=== PATIENT | female | born 1975 | race African-American/Black ===

== ENCOUNTER 2020-12-12 08:43 | Inpatient (IN) | payer OTHER ==
[2020-12-12] MEDS ORDERED: ACETAMINOPHEN 1000 MG/100 ML VIAL (NON FORMULARY) IVPB PRN (09:16)
[2020-12-12] MEDS ORDERED: IBUPROFEN 400 MG TABLET (FP) PO ONE ×2 (10:25→10:43)
[2020-12-12] MEDS ORDERED: ACETAMINOPHEN 1000 MG/100 ML VIAL (NON FORMULARY) IVPB ONE (10:25)
[2020-12-12 10:26] LABS: EPI CELLS >36 /uL (0-25.1); HYALINE CASTS 1 /uL (0-3.1); PH,URINE 6.5 (5.0-8.0); URINE APPEARANCE CLOUDY; URINE BACTERIA 101 /uL (0-1359); URINE BILIRUBIN NEGATIVE (NEGATIVE); URINE COLOR YELLOW; URINE GLUCOSE (UA) NEGATIVE (NEGATIVE); URINE KETONE NEGATIVE (NEGATIVE); URINE LEUK ESTERASE 1+ (NEGATIVE); URINE NITRITE NEGATIVE (NEGATIVE); URINE PROTEIN NEGATIVE (NEGATIVE); URINE RBC 11 /uL (0-23.9); URINE UROBILINOGEN 0.2 mg/dL (0.2-1.0); URINE WBC 17 /uL (0-25.8)
[2020-12-12] MEDS ORDERED: DOXYCYCLINE INJECTION 100 MG in DEXTROSE 5%-WATER - 100 ML IVPB ONE (10:26)
[2020-12-12] MEDS ORDERED: CEFTRIAXONE 1,000 MG in DEXTROSE 5%-WATER - 50 ML IVPB ONE (10:26)
[2020-12-12] MEDS ORDERED: DOXYCYCLINE HYCLATE 100 MG VIAL ONE ×2 (10:44→22:14)
[2020-12-12] MEDS ORDERED: ACETAMINOPHEN INJECTION 100 ML IVPB ONE (10:44)
[2020-12-12] MEDS ORDERED: CEFTRIAXONE 1 GM/50 ML BAG ONE (10:44)
[2020-12-12 11:01] LABS: EOS % 0.5 % (0-4.5); HEMATOCRIT 38.4 % (32.4-45.2); HEMOGLOBIN 12.8 GM/dL (10.7-15.3); MCH 33.4 pg (25.7-33.7); MCHC 33.3 g/dl (32.0-36.0); MEAN CELL VOLUME 100.3 fl (80-96); MEAN PLT VOLUME 8.7 fl (7.5-11.1); NEUT % 80.5 % (42.8-82.8); PLATELET COUNT 251 K/MM3 (134-434); RBC 3.83 M/mm3 (3.60-5.2); RDW 15.8 % (11.6-15.6)
[2020-12-12 11:08] LABS: INR 1.09 (0.83-1.09); PROTHROMBIN TIME (PATIENT) 13.2 SEC (9.7-13.0)
[2020-12-12 11:10] LABS: ACTIVATED PTT 27.4 SECONDS (25.2-36.5)
[2020-12-12 11:28] LABS: CHLORIDE 103 mmol/L (98-107); POTASSIUM 3.9 mmol/L (3.5-5.1); SODIUM 140 mmol/L (136-145)
[2020-12-12 11:31] LABS: ALBUMIN 2.7 g/dl (3.4-5.0); ANION GAP 7 MMOL/L (8-16); CO2 30 mmol/L (21-32); GLUCOSE,RANDOM 82 mg/dL (74-106)
[2020-12-12 11:34] LABS: CREATININE 0.9 mg/dL (0.55-1.3); SGOT/AST 27 U/L (15-37); SGPT/ALT 20 U/L (13-61)
[2020-12-12 11:35] LABS: BILIRUBIN,TOTAL 0.5 mg/dL (0.2-1); TOT PROT 6.7 g/dl (6.4-8.2)
[2020-12-12 11:37] LABS: ALK PHOS 57 U/L (45-117)
[2020-12-12 11:43] LABS: BLOOD UREA NITROGEN 15.2 mg/dL (7-18); CALCIUM 7.9 mg/dL (8.5-10.1)
[2020-12-12 14:05] LABS: VENOUS BASE EXCESS 3.7 mmol/L (-2-2); VENOUS PCO2 46.7 mmHg (38-52); VENOUS PH 7.412 (7.310-7.410)
[2020-12-12 15:16] LABS: HIV INTERPRETATION NEGATIVE (NEGATIVE)
[2020-12-12] MEDS ORDERED: HEPARIN NA (PORCINE) 5,000 UNITS/ML 1ML VIAL ONE (19:23)
[2020-12-12] MEDS: HEPARIN NA (PORCINE) 5,000 UNITS/ML 1ML VIAL SQ SCH (19:26)
[2020-12-12] MEDS: DOXYCYCLINE INJECTION 100 MG in DEXTROSE 5%-WATER 100 ML IVPB SCH (22:22)
[2020-12-12] MEDS ORDERED: ACETAMINOPHEN 325 MG TABLET (FP) ONE (22:24)
[2020-12-12] MEDS: ACETAMINOPHEN 325 MG TABLET (FP) PO PRN (22:45)
[2020-12-13] MEDS ORDERED: MORPHINE SULFATE 2 MG/ML VIAL IVPUSH ONE (01:18)
[2020-12-13] MEDS: HEPARIN NA (PORCINE) 5,000 UNITS/ML 1ML VIAL SQ SCH ×3 (01:28→17:28)
[2020-12-13 02:59] VITALS: BMI 32.8
[2020-12-13] MEDS: ACETAMINOPHEN 325 MG TABLET (FP) PO PRN ×3 (04:22→10:04)
[2020-12-13 09:31] LABS: BASO % 0.5 % (0-2.0); EOS % 0.3 % (0-4.5); HEMATOCRIT 35.4 % (32.4-45.2); HEMOGLOBIN 11.9 GM/dL (10.7-15.3); LYMPH % 11.6 % (8-40); MCH 33.9 pg (25.7-33.7); MCHC 33.8 g/dl (32.0-36.0); MEAN CELL VOLUME 100.4 fl (80-96); MEAN PLT VOLUME 8.5 fl (7.5-11.1); MONO % 8.7 % (3.8-10.2); NEUT % 78.9 % (42.8-82.8); PLATELET COUNT 232 K/MM3 (134-434); RBC 3.53 M/mm3 (3.60-5.2); RDW 15.7 % (11.6-15.6); WHITE BLOOD COUNT 14.1 K/mm3 (4.0-10.0)
[2020-12-13] MEDS ORDERED: DEXTROSE 5%-WATER 100 ML IVPB ONE ×3 (09:39→21:12)
[2020-12-13] MEDS ORDERED: DOXYCYCLINE HYCLATE 100 MG VIAL ONE ×2 (09:39→21:12)
[2020-12-13] MEDS ORDERED: PT OWN MED DRAWER 7, Y5N ONE ×6 (09:39→21:13)
[2020-12-13] MEDS: PYRIDOSTIGMINE BROMIDE 60 MG TABLET PO SCH ×4 (09:52→22:01)
[2020-12-13] MEDS ORDERED: NAPROXEN 500 MG TABLET PO SCH (10:00)
[2020-12-13] MEDS: DOXYCYCLINE INJECTION 100 MG in DEXTROSE 5%-WATER 100 ML IVPB SCH ×2 (10:07→22:00)
[2020-12-13 10:33] LABS: BLOOD UREA NITROGEN 11.5 mg/dL (7-18)
[2020-12-13 10:34] LABS: ALBUMIN 2.4 g/dl (3.4-5.0); MAGNESIUM 1.7 mg/dL (1.8-2.4)
[2020-12-13 10:37] LABS: CREATININE 1.1 mg/dL (0.55-1.3); PHOSPHOROUS 2.6 mg/dL (2.5-4.9)
[2020-12-13 10:38] LABS: BILIRUBIN,TOTAL 0.7 mg/dL (0.2-1); TOT PROT 6.3 g/dl (6.4-8.2)
[2020-12-13 11:19] LABS: ANISOCYTOSIS 0; HELMET CELLS 0; HOWELL-JOLLY BODIES 0; MACROCYTOSIS 0; OVALOCYTE 0; PLATELET ESTIMATE NORMAL; ROULEAU 0; SICKELED CELLS 0; TARGET CELLS 0; TEAR DROP CELLS 0; TOXIC GRANULATION 0
[2020-12-13 11:20] LABS: POTASSIUM 2.8 mmol/L (3.5-5.1)
[2020-12-13] MEDS: PANTOPRAZOLE 40 MG TABLET PO SCH (11:59)
[2020-12-13] MEDS: CEFTRIAXONE 2 GM in DEXTROSE 5%-WATER 2 GM/100 ML BAG IVPB SCH (12:14)
[2020-12-13] MEDS ORDERED: POTASSIUM CHLORIDE TABS 20 MEQ TABLET.ER (FP) PO ONE ×2 (12:50→21:38)
[2020-12-13] MEDS ORDERED: MAGNESIUM SULF 50% (8.12 MEQ/2 ML-1 GM VIAL) IVPB ONE (12:50)
[2020-12-13] MEDS: SODIUM CHLORIDE 1,000 ML IV SCH (13:27)
[2020-12-13] MEDS: INDOMETHACIN 50 MG CAPSULE PO SCH ×2 (17:27→22:01)
[2020-12-14] MEDS: HEPARIN NA (PORCINE) 5,000 UNITS/ML 1ML VIAL SQ SCH ×3 (03:06→17:29)
[2020-12-14] MEDS ORDERED: DOXYCYCLINE HYCLATE 100 MG VIAL ONE ×2 (09:32→21:16)
[2020-12-14] MEDS ORDERED: DEXTROSE 5%-WATER 100 ML IVPB ONE ×3 (09:32→21:16)
[2020-12-14] MEDS ORDERED: PT OWN MED DRAWER 7, Y5N ONE ×4 (09:33→21:17)
[2020-12-14] MEDS: PYRIDOSTIGMINE BROMIDE 60 MG TABLET PO SCH ×4 (09:36→21:26)
[2020-12-14] MEDS: INDOMETHACIN 50 MG CAPSULE PO SCH ×4 (09:36→21:26)
[2020-12-14] MEDS: DOXYCYCLINE INJECTION 100 MG in DEXTROSE 5%-WATER 100 ML IVPB SCH ×2 (09:37→21:26)
[2020-12-14] MEDS: PANTOPRAZOLE 40 MG TABLET PO SCH (09:37)
[2020-12-14] MEDS: SODIUM CHLORIDE 1,000 ML IV SCH ×2 (09:42→13:26)
[2020-12-14] MEDS: CEFTRIAXONE 2 GM in DEXTROSE 5%-WATER 2 GM/100 ML BAG IVPB SCH (11:03)
[2020-12-14 11:59] LABS: BASO % 0.9 % (0-2.0); EOS % 0.9 % (0-4.5); HEMATOCRIT 34.6 % (32.4-45.2); HEMOGLOBIN 11.7 GM/dL (10.7-15.3); LYMPH % 20.4 % (8-40); MCHC 33.9 g/dl (32.0-36.0); MEAN CELL VOLUME 100.3 fl (80-96); MEAN PLT VOLUME 8.4 fl (7.5-11.1); MONO % 11.5 % (3.8-10.2); NEUT % 66.3 % (42.8-82.8); PLATELET COUNT 237 K/MM3 (134-434); RBC 3.45 M/mm3 (3.60-5.2); RDW 16.1 % (11.6-15.6); WHITE BLOOD COUNT 10.4 K/mm3 (4.0-10.0)
[2020-12-14 12:22] LABS: POTASSIUM 3.3 mmol/L (3.5-5.1)
[2020-12-14 12:25] LABS: CALCIUM 7.9 mg/dL (8.5-10.1)
[2020-12-14 12:26] LABS: ALBUMIN 2.3 g/dl (3.4-5.0); BLOOD UREA NITROGEN 7.8 mg/dL (7-18); MAGNESIUM 2.3 mg/dL (1.8-2.4)
[2020-12-14 12:28] LABS: CREATININE 0.8 mg/dL (0.55-1.3)
[2020-12-14 12:29] LABS: PHOSPHOROUS 1.5 mg/dL (2.5-4.9)
[2020-12-14 12:30] LABS: BILIRUBIN,TOTAL 0.3 mg/dL (0.2-1)
[2020-12-14 16:06] LABS: HEP B CORE AB, TOT Negative (Negative)
[2020-12-14] MEDS ORDERED: POTASSIUM CHLORIDE TABS 20 MEQ TABLET.ER (FP) PO ONE (16:15)
[2020-12-14] MEDS: ACETAMINOPHEN 325 MG TABLET (FP) PO PRN (20:39)
[2020-12-15] MEDS: HEPARIN NA (PORCINE) 5,000 UNITS/ML 1ML VIAL SQ SCH ×4 (01:40→17:57)
[2020-12-15] MEDS: SODIUM CHLORIDE 1,000 ML IV SCH ×2 (02:32→14:08)
[2020-12-15] MEDS: ACETAMINOPHEN 325 MG TABLET (FP) PO PRN ×3 (06:50→20:10)
[2020-12-15 08:33] LABS: BASO % 0.9 % (0-2.0); EOS % 2.4 % (0-4.5); HEMATOCRIT 33.3 % (32.4-45.2); HEMOGLOBIN 11.4 GM/dL (10.7-15.3); LYMPH % 20.5 % (8-40); MCHC 34.4 g/dl (32.0-36.0); MEAN PLT VOLUME 8.3 fl (7.5-11.1); MONO % 10.5 % (3.8-10.2); NEUT % 65.7 % (42.8-82.8); PLATELET COUNT 241 K/MM3 (134-434); RBC 3.36 M/mm3 (3.60-5.2)
[2020-12-15 08:49] LABS: POTASSIUM 3.5 mmol/L (3.5-5.1)
[2020-12-15 08:53] LABS: CALCIUM 7.2 mg/dL (8.5-10.1)
[2020-12-15 08:54] LABS: ALBUMIN 2.1 g/dl (3.4-5.0); BLOOD UREA NITROGEN 8.3 mg/dL (7-18)
[2020-12-15 08:55] LABS: CHOLESTEROL 141 mg/dL (50-200); TRIGLYCERIDES 149 mg/dL (0-150)
[2020-12-15 08:56] LABS: LDL CHOLESTEROL (ONLY SJRH) 58 mg/dL (5-100)
[2020-12-15 08:57] LABS: CREATININE 0.8 mg/dL (0.55-1.3)
[2020-12-15 08:59] LABS: BILIRUBIN,TOTAL 0.3 mg/dL (0.2-1)
[2020-12-15 09:02] LABS: HDL CHOLESTEROL 50 mg/dL (40-60)
[2020-12-15] MEDS ORDERED: PT OWN MED DRAWER 7, Y5N ONE ×5 (09:31→19:43)
[2020-12-15] MEDS ORDERED: DEXTROSE 5%-WATER 100 ML IVPB ONE ×3 (09:33→19:42)
[2020-12-15] MEDS ORDERED: DOXYCYCLINE HYCLATE 100 MG VIAL ONE ×2 (09:33→19:42)
[2020-12-15] MEDS: PYRIDOSTIGMINE BROMIDE 60 MG TABLET PO SCH ×4 (09:49→21:04)
[2020-12-15] MEDS: INDOMETHACIN 50 MG CAPSULE PO SCH ×4 (09:50→21:03)
[2020-12-15] MEDS: PANTOPRAZOLE 40 MG TABLET PO SCH (09:51)
[2020-12-15] MEDS: CEFTRIAXONE 2 GM in DEXTROSE 5%-WATER 2 GM/100 ML BAG IVPB SCH (09:52)
[2020-12-15] MEDS: DOXYCYCLINE INJECTION 100 MG in DEXTROSE 5%-WATER 100 ML IVPB SCH ×2 (09:53→21:04)
[2020-12-16] MEDS: HEPARIN NA (PORCINE) 5,000 UNITS/ML 1ML VIAL SQ SCH ×3 (01:22→18:02)
[2020-12-16 07:54] LABS: HEMATOCRIT 38.3 % (32.4-45.2); HEMOGLOBIN 13.2 GM/dL (10.7-15.3); MCH 33.8 pg (25.7-33.7); MCHC 34.5 g/dl (32.0-36.0); MEAN CELL VOLUME 97.8 fl (80-96); MEAN PLT VOLUME 8.5 fl (7.5-11.1); PLATELET COUNT 314 K/MM3 (134-434); RBC 3.91 M/mm3 (3.60-5.2); RDW 15.9 % (11.6-15.6); WHITE BLOOD COUNT 7.5 K/mm3 (4.0-10.0)
[2020-12-16] MEDS ORDERED: DOXYCYCLINE HYCLATE 100 MG VIAL ONE (08:37)
[2020-12-16] MEDS ORDERED: DEXTROSE 5%-WATER 100 ML IVPB ONE (08:38)
[2020-12-16] MEDS: ACETAMINOPHEN 325 MG TABLET (FP) PO PRN ×2 (08:50→21:34)
[2020-12-16 09:01] LABS: BLOOD UREA NITROGEN 9.1 mg/dL (7-18); CALCIUM 7.9 mg/dL (8.5-10.1); CREATININE 0.8 mg/dL (0.55-1.3); MAGNESIUM 2.2 mg/dL (1.8-2.4); PHOSPHOROUS 2.1 mg/dL (2.5-4.9); POTASSIUM 3.4 mmol/L (3.5-5.1)
[2020-12-16] MEDS: DOXYCYCLINE INJECTION 100 MG in DEXTROSE 5%-WATER 100 ML IVPB SCH (09:41)
[2020-12-16] MEDS: PYRIDOSTIGMINE BROMIDE 60 MG TABLET PO SCH ×4 (09:42→21:38)
[2020-12-16] MEDS: PANTOPRAZOLE 40 MG TABLET PO SCH (09:42)
[2020-12-16] MEDS: INDOMETHACIN 50 MG CAPSULE PO SCH ×4 (09:43→21:38)
[2020-12-16] MEDS ORDERED: PT OWN MED DRAWER 7, Y5N ONE ×7 (09:55→21:38)
[2020-12-16] MEDS ORDERED: POTASSIUM PHOSPHATE 15 MM in SODIUM CHLORIDE 250 ML IVPB ONE (11:00)
[2020-12-16] MEDS ORDERED: POTASSIUM CHLORIDE ORAL LIQUID 20 MEQ/15 ML PO ONE (12:37)
[2020-12-16] MEDS: NAPH,MB-DB/K PH,MBDB POWDER PACKET PO SCH ×2 (13:07→21:36)
[2020-12-16] MEDS ORDERED: DOXYCYCLINE HYCLATE 100 MG CAPSULE PO SCH (18:00)
[2020-12-16] MEDS: DOXYCYCLINE HYCLATE 100 MG CAPSULE PO SCH (18:02)
[2020-12-17] MEDS: HEPARIN NA (PORCINE) 5,000 UNITS/ML 1ML VIAL SQ SCH ×3 (01:51→18:15)
[2020-12-17] MEDS ORDERED: PT OWN MED DRAWER 7, Y5N ONE ×3 (08:56→20:50)
[2020-12-17] MEDS: DOXYCYCLINE HYCLATE 100 MG CAPSULE PO SCH ×2 (09:06→18:27)
[2020-12-17] MEDS: PYRIDOSTIGMINE BROMIDE 60 MG TABLET PO SCH ×4 (09:07→21:06)
[2020-12-17] MEDS: PANTOPRAZOLE 40 MG TABLET PO SCH (09:07)
[2020-12-17] MEDS: INDOMETHACIN 50 MG CAPSULE PO SCH ×4 (09:07→21:06)
[2020-12-17] MEDS: ACETAMINOPHEN 325 MG TABLET (FP) PO PRN ×2 (09:59→21:06)
[2020-12-18] MEDS: HEPARIN NA (PORCINE) 5,000 UNITS/ML 1ML VIAL SQ SCH ×2 (01:13→09:53)
[2020-12-18] MEDS ORDERED: PT OWN MED DRAWER 7, Y5N ONE (09:49)
[2020-12-18] MEDS: DOXYCYCLINE HYCLATE 100 MG CAPSULE PO SCH (09:51)
[2020-12-18] MEDS: PANTOPRAZOLE 40 MG TABLET PO SCH (09:51)
[2020-12-18] MEDS: ACETAMINOPHEN 325 MG TABLET (FP) PO PRN (09:52)
[2020-12-18] MEDS: INDOMETHACIN 50 MG CAPSULE PO SCH ×2 (09:52→13:02)
[2020-12-18] MEDS: PYRIDOSTIGMINE BROMIDE 60 MG TABLET PO SCH ×2 (09:52→13:02)
[2020-12-18 10:40] VITALS: BP 140/73; PULSE 76; TEMP 98.3
== END 2020-12-18 14:30 | disposition home or self-care (01) | DRG 546 ==
LOC: JER 08:43 → JERBED 12:59 → J8W 23:20
PROVIDERS: ADMIT Internal Medicine; ATTEND Internal Medicine
DX: M02.39 Reiter's disease, multiple sites (principal); N39.0 Urinary tract infection, site not specified; H10.9 Unspecified conjunctivitis; E03.9 Hypothyroidism, unspecified; G70.00 Myasthenia gravis without (acute) exacerbation; M25.562 Pain in left knee; M25.561 Pain in right knee; E88.09 Other disorders of plasma-protein metabolism, not elsewhere classified; D25.9 Leiomyoma of uterus, unspecified; E66.9 Obesity, unspecified; Z68.32 Body mass index [BMI] 32.0-32.9, adult; I10 Essential (primary) hypertension; E78.5 Hyperlipidemia, unspecified; B96.20 Unspecified Escherichia coli [E. coli] as the cause of diseases classified elsewhere
CPT/HCPCS: 36415; 71045-TC-FY; 76705-TC; 76856-TC; 80048; 80053; 80061; 81003; 82803; 83036; 83605; 83721; 83735; 84100; 84439; 84443; 84481; 84484; 84550; 84703; 85025; 85027; 85610; 85651; 85730; 86140; 86618; 86704; 86705; 86706; 86707; 86780; 87040; 87086; 87186; 87389; 87491; 87591; 87661; 93005; 93010; 97116-GP; 97162-GP; 99285-25; C9803; J0131; J1644; U0003